=== PATIENT | female | born 1990 | race Caucasian/White ===

== ENCOUNTER → 2022-10-24 13:43 | Outpatient (BNVA) | payer OTHER, SELFPAY | PROVIDERS: Family Provider Family Medicine; PCP Family Medicine; Visit Provider Nurse Practitioner Family | DX: S89.92XA Unspecified injury of left lower leg, initial encounter (principal); X58.XXXA Exposure to other specified factors, initial encounter | CPT/HCPCS: 73562 ==

== ENCOUNTER 2022-12-24 22:53 | Emergency (ER) | payer OTHER, SELFPAY ==
[2022-12-24 22:58] VITALS: BP 140/84; PULSE 87; RESP 16; TEMP 36.8; O2SAT 98; BMI 29.6
[2022-12-24 23:06] VITALS: O2SAT 97
--- NOTE | 2022-12-24 23:16 | XRR_ITS ---
PROCEDURE INFORMATION: Exam: XR Chest Exam date and time: 12/24/2022 11:23 PM Age: 32 years old Clinical indication: Cough; Additional info: Cp TECHNIQUE: Imaging protocol: Radiologic exam of the chest. Views: 1 view. COMPARISON: CT abdomen pelvis w con* [id number] 10/04/2017 5:55 PM FINDINGS: Lungs: Unremarkable. No consolidation. Pleural spaces: Unremarkable. No pleural effusion. No pneumothorax. Heart/Mediastinum: Unremarkable. No cardiomegaly. Bones/joints: Moderate right convex scoliosis. XR/XR chest 1V portable [id number] IMPRESSION: No acute findings.
--- NOTE | 2022-12-24 23:47 | ED_ITS ---
HPI - COVID General: Chief Complaint: COVID symptoms Stated Complaint: throat tightness, body aches, chest tightness Time Seen by Provider: 12/24/22 23:16 Source: patient Mode of arrival: ambulatory Limitations: no limitations History of Present Illness: 32-year-old female states over the last couple days she has had a cough along with some congestion she is also had body aches and low-grade fever she states she had a sore throat along with she feels like some chest tightness. She had no vomiting no diarrhea states she had COVID in the past and feels like that or another viral infection. COVID 19 common symptoms: positive fever(s), chills, non-productive cough, body aches and throat pain; negative headache(s), nausea, vomiting or diarrhea COVID 19 other sytmptoms: negative chest pain COVID Results: SARS-CoV-2 Antigen (Rapid) Negative (Negative) 12/24/22 23:43 Review of Systems Const: Reports: fever(s), chills and body aches Eyes: Denies: blurry vision or eye discomfort ENMT: Reports: throat pain Card: Denies: chest pain Resp: Reports: non-productive cough GI: Denies: abdominal pain, nausea, vomiting or diarrhea : Denies: dysuria Musc: Denies: neck pain or back pain Skin/Breast: Denies: rash Neuro: Denies: headache(s) Psych: Denies: depression Dominic/Lymph: Denies: easy bruising All/Imm: Denies: urticaria PFSH ED PFSH: Medical History (Updated 12/25/22 @ 00:56 by Fazal Isidro MD) No pertinent past medical history Social History (Updated 12/24/22 @ 23:48 by Fazal Isidro MD) Substance/Drug Use: never Physical Exam Const: COMMON NORMALS: no acute distress, patient oriented x3 and healthy appearing HENMT: COMMON NORMALS: normocephalic and atraumatic HEAD & SCALP: normocephalic and atraumatic MOUTH: Normal oral and palatal mucosa present THROAT: posterior oropharynx normal Eye: COMMON NORMALS: Equal, round and reactive pupils present and EOMs intact bilaterally PUPIL: Yes Equal, round and reactive pupils present Neck/C-Spine: COMMON NORMALS: full ROM and supple Chest: COMMONS NORMALS: normal inspection of the chest and normal palpation of entire chest wall Resp: COMMON NORMALS: normal respiratory effort, No retractions, No use of accessory muscles and clear to auscultation bilaterally AUSCULTATION: clear to auscultation bilaterally Cardio: COMMON NORMALS: regular rate, regular rhythm and No murmurs present (Cardio) RATE: regular rate RHYTHM: regular rhythm GI: COMMON NORMALS: Normal to inspection, nondistended, normoactive bowel sounds present, Soft to palpation, non-tender and no masses PALPATION: Yes Soft to palpation Extremity: COMMON NORMALS: normal to inspection and full ROM Neuro: COMMON NORMALS: patient oriented x3, moves all extremities and no focal motor deficits Psych: COMMON NORMALS: mental status grossly normal, Normal thought process present and cooperative THOUGHT PROCESS: Normal thought process present Skin: COMMON NORMALS: no rashes or lesions noted and no wounds GENERAL SKIN EXAM: no rashes or lesions noted Course Vital Signs: Vital signs: Vital Signs Temperature 98.3 F 12/24/22 22:58 Pulse Rate 87 12/24/22 22:58 Respiratory Rate 16 12/24/22 22:58 Blood Pressure 140/84 12/24/22 22:58 Pulse Oximetry 97 12/24/22 23:06 Oxygen Delivery Me thod 12/24/22 23:06 MDM - COVID Medical Decision Making Patient presents here with likely viral upper respiratory infection she is well- appearing here no distress x-ray shows no pneumonia patient given Decadron here she is stable for discharge she is to follow-up with PCP and return if worsening. Lab Data Radiology Impressions Chest X-Ray 12/24/22 23:16 IMPRESSION: No acute findings. Laboratory Results Influenza Type A Ag Negative (Negative) 12/24/22 23:43 Influenza Type B Ag Negative (Negative) 12/24/22 23:43 SARS-CoV-2 Ag (Rapid) Negative (Negative) 12/24/22 23:43 Group A Strep Rapid Negative (Negative) 12/24/22 23:55 SARS-CoV-2 Antigen (Rapid) Negative (Negative) 12/24/22 23:43 Discharge Plan Discharge Patient Disposition: Home Clinical Impression: Upper respiratory infection Prescriptions: No Action No Known Home Medications Discharge Orders: Discharge ED (Routine); Ordered 12/25/22 Ordered By: Fzaal Isidro Referrals: Agnieszka Wheeler MD [Primary Care Provider] - 1-3 days Discharge Diet: Advance as tolerated Discharge Activity: Resume usual activity Patient Instructions: Upper Respiratory Infection (ED) Coding Level of Care Code ED Technician Support Engineer for Breezy Ruiz
--- NOTE | 2022-12-24 23:50 | ECG_ITS ---
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
[2022-12-25 00:45] LABS: Influenza A by IFA Negative (Negative); Influenza B by IFA Negative (Negative); SARS Covid-2 Antigen Negative (Negative)
[2022-12-25 00:55] LABS: Rapid Strep A Test Negative (Negative)
[2022-12-25] MEDS: dexamethasone 10 mg/mL INJ IM (01:00)
== END 2022-12-25 01:06 | disposition home or self-care (01) ==
PROVIDERS: Emergency Provider Emergency Medicine; PCP Family Medicine
DX: J06.9 Acute upper respiratory infection, unspecified (principal); Z20.822 Contact with and (suspected) exposure to COVID-19
CPT/HCPCS: 71045; 87081; 87426; 87804; 87880; 93005; 96372; 99285; J1100

== ENCOUNTER 2023-02-17 08:12 | Outpatient (CLI) | payer OTHER, SELFPAY ==
--- NOTE | 2023-02-17 08:30 | MR_ITS ---
WS: [id number] MRI RIGHT SHOULDER HISTORY: STRAIN OF ROTATOR CUFF COMPARISON: 02/10/2023 TECHNIQUE: Multiplanar sequences of the shoulder joint are submitted. Moderate AC joint arthropathy. Joint space is narrowed with irregularity along the joint surfaces. 4 mm osteophyte encroaches upon the myotendinous supraspinatus muscle. No significant subacromial or parkinson bdeltoid bursa. 4 mm osteophyte with minimal subacromial impingement. Biceps tendon in normal positio n. No os acromion. No muscle atrophy or edema. No rotator cuff tear. There is very mild tendinopathy of the subscapulari s tendon. No labral tear. MR/MR shoulder RT wo con* [id number] IMPRESSION: 1. No rotator cuff tendon tear. 2. Mild tendinopathy distal subscapularis tendon. 3. Moderate AC joint arthritis. 4 mm clavicular osteophyte with mild encroachm ent upon the supraspinatus myotendinous insertion site. 4. Mild subacromial impingement.
== END 2023-02-17 08:13 | disposition home or self-care (01) ==
LOC: RAD 08:19
PROVIDERS: PCP Family Medicine; Visit Provider Nurse Practitioner
DX: M19.011 Primary osteoarthritis, right shoulder (principal); M25.811 Other specified joint disorders, right shoulder; M67.813 Other specified disorders of tendon, right shoulder; M25.711 Osteophyte, right shoulder
CPT/HCPCS: 73221

== ENCOUNTER → 2023-03-29 09:50 | Outpatient (BNVA) | payer OTHER, SELFPAY | PROVIDERS: PCP Family Medicine; Referring Provider Nurse Practitioner; Visit Provider Specialist | DX: M75.01 Adhesive capsulitis of right shoulder (principal); G89.29 Other chronic pain; M25.511 Pain in right shoulder | CPT/HCPCS: 73030 ==

== ENCOUNTER 2023-04-23 10:43 | Outpatient (CLI) | payer OTHER, SELFPAY ==
--- NOTE | 2023-04-23 15:00 | CTR_ITS ---
PROCEDURE INFORMATION: Exam: CT Right Upper Extremity Without Contrast, Shoulder Exam date and time: 04/23/2023 10:51 AM Age: 32 years old Clinical indication: Pain; Shoulder; Right; Additional info: Shoulder pain TECHNIQUE: Imaging protocol: Computed tomography of the right upper extremity without contrast. Exam focused on the shoulder. Radiation optimization: All CT scans at this facility use at least one of these dose optimization techniques: automated exposure control; mA and/or kV adjustment per patient size (includes targeted exams where dose is matched to clinical indication); or iterative reconstruction. REPORTING DATA: Count of CT and Cardiac NM exams in prior 12 months: This patient has received 0 known CTs and 0 known cardiac nuclear medicine studies in the 12 months prior to the current study. COMPARISON: Right shoulder x-ray series 03/29/2023, MR shoulder RT wo con* [id number] 02/17/2023 9:11 AM RADIATION DOSE METRICS: Total DLP (mGy-cm): 364.12 FINDINGS: Bones/joints: Mild degenerative osteophyte formation and cystic changes in the distal clavicle and acromion are noted. Normal alignment of the acromioclavicular joint. A small amount of gas in the acromioclavicular joint is noted which extends into cystic changes in the acromion. Minimal distal clavicular or erosive changes cannot be entirely excluded anteriorly, for example on series 6, image 58 and on series 3 between images 14 and 15. Normal glenohumeral joint alignment. No acute fracture.There is mild diffuse vertebral body spondylosis. Soft tissues: Normal. CT/CT shoulder RT wo con* [id number] IMPRESSION: 1. No acute findings. 2. Acromioclavicular joint primary osteoarthritic changes are present. There are possible minimal erosive changes involving the cortex of the distal clavicle which can be associated with the underlying degenerative changes, posttraumatic osteolysis or repetitive microtrauma. The less likely differential includes inflammatory arthropathy or osteomyelitis.
== END 2023-04-23 10:44 | disposition home or self-care (01) ==
PROVIDERS: PCP Family Medicine; Visit Provider Specialist
DX: M19.011 Primary osteoarthritis, right shoulder (principal); M25.811 Other specified joint disorders, right shoulder; M75.01 Adhesive capsulitis of right shoulder
CPT/HCPCS: 73200

== ENCOUNTER → 2023-05-05 09:01 | Outpatient (BNVA) | payer OTHER, SELFPAY | PROVIDERS: PCP Family Medicine; Visit Provider Physician Assistant | DX: M47.22 Other spondylosis with radiculopathy, cervical region; M19.011 Primary osteoarthritis, right shoulder; R20.2 Paresthesia of skin | CPT/HCPCS: 72050 ==

== ENCOUNTER 2023-06-03 15:49 | Outpatient (CLI) | payer OTHER, SELFPAY ==
--- NOTE | 2023-06-03 16:00 | MR_ITS ---
WS: [id number] MRI CERVICAL SPINE NONCONTRAST HISTORY: Cervical spine pain, pain into RIGHT shoulder. COMPARISON: None available. Technique: Multiplanar, multisequence noncontrast imaging of the cervical spine. Normal cervical alignment with no compression fracture or significant disc space narrowing. Signal within the cervical cord is normal. Visualized posterior fossa is unremarkable. Craniocervical junction, C1 and C2 relationship, odontoid process and soft tissues are normal. C2-C3: Very superficial RIGHT foraminal disc versus osteophyte. No stenosis. C3-C4: Minimal disc bulging. No stenosis prior C4-C5: Normal. C5-C6: Minimal disc bulging. Very minimal RIGHT foraminal narrowing predominantly due to an osteophyt e. No high-grade stenosis. C6-C7: Normal. C7-T1: Normal. Paraspinal soft tissue are normal. IMPRESSION: 1. No high-grade central or foraminal stenosis or large disc protrusions. 2. Minimal RIGHT foraminal narrowing at C5-6 predominantly due to an osteophyte. No significant steno sis. 3. Very shallow RIGHT foraminal disc protrusion versus osteophyte at C2-3. No stenosis.
== END 2023-06-03 15:50 | disposition home or self-care (01) ==
PROVIDERS: PCP Family Medicine; Visit Provider Physician Assistant
DX: M47.22 Other spondylosis with radiculopathy, cervical region (principal); M25.511 Pain in right shoulder; M25.78 Osteophyte, vertebrae
CPT/HCPCS: 72141

== ENCOUNTER → 2023-07-26 15:11 | Outpatient (BNVA) | payer MEDICAID, SELFPAY | PROVIDERS: PCP Family Medicine; Referring Provider Orthopaedic Surgery; Visit Provider Nurse Practitioner | DX: G56.01 Carpal tunnel syndrome, right upper limb (principal) | CPT/HCPCS: 73130 ==

== ENCOUNTER 2023-08-06 07:48 | Day surgery (SDC) | payer MEDICAID, SELFPAY ==
[2023-08-06] VITALS (7 sets, daily range): BP systolic 102–132; BP diastolic 61–80; PULSE 60–90; RESP 16; TEMP 36.1–36.6; O2SAT 95–100; BMI 32.0
[2023-08-06 08:42] LABS: OR HCG Qualitative Urine Negative (Negative)
[2023-08-06] MEDS: CELEcoxib 200 mg Capsule 400 MG PO (08:47)
[2023-08-06] MEDS: gabapentin 300 mg Capsule PO (08:47)
[2023-08-06] MEDS: acetaminophen 1,000 MG/100 ML PIGGYBACK 400 MG IV (08:48)
[2023-08-06] MEDS: sodium chloride 0.9% 1,000 ML 30 ML IV (08:51)
--- NOTE | 2023-08-06 10:29 | ANES.PREANE2 ---
Pre-Anesthetic Assessment Height/Weight: Height 1.57 m Weight 79.379 kg Temp Pulse Resp BP Pulse Ox O2 Del Method 97.4 F L 71 16 102/78 98 Room Air 08/06/23 08:06 08/06/23 08:06 08/06/23 08:06 08/06/23 08:06 08/06/23 08:06 08/06/23 08:06 Operation Date: 08/06/23 09:40 Proposed Procedures p Right wrist carpal tunnel release 31674,G56.01(Right) - Camelia Caban MD Last intake: Intake Last Liquid Date 08/05/23 Last Liquid Time 22:00 Last Solid Date 08/05/23 Last Solid Time 22:00 Social Tobacco 1 pack(s) per day Airway Submandibular: within normal limits Cervical ROM: within normal limits Mallampati: Class II Pulmonary None reported CV/HEM None reported GI None reported Metabolic None reported Musc/skel Right AC joint arthritis Anesthetic Plan ASA status: 2 Anesthesia: General Medications/Allergies Home Medications Medication Instructions Recorded Confirmed Last Taken Type No Known Home Medications 08/05/23 08/05/23 Unknown History Allergies Allergy/AdvReac Type Severity Reaction Status Date / Time Penicillins Allergy ALGY-Hives Verified 08/06/23 08:06 Current Medications Generic Name Dose Route Start Last Admin Trade Name Roge PRN Reason Stop Dose Admin Sodium Chloride 1,000 mls @ 30 mls/hr 08/06/23 08:00 08/06/23 08:51 Sodium Chloride 0.9% IV 08/07/23 07:59 30 mls/hr .Q24H PHILLIP Administration PFSH Anesthesia Medical History No pertinent past medical history Social History Substance/Drug Use: never Female Reproductive History Date of last menstrual period: 07/16/23 Data Anesthesia Cardiac Studies: No Data to Display
--- NOTE | 2023-08-06 11:59 | P.HPUD_ITS ---
Surgery/Procedure H&P Update DATE OF PROCEDURE: August 06, 2023 DATE H&P PERFORMED: 07/26/23 H&P UPDATE INFORMATION: I have reviewed H&P completed within last 30 days, I have examined patient prior to procedure, No changes to prior documentation and H&P is in [facility] EMR on date indicated PLANNED PROCEDURE: Operation Date: 08/06/23 09:40 Proposed Procedures p Right wrist carpal tunnel release 71248,G56.01(Right) - Camelia Caban MD Related Problem List Diagnoses (1) Right carpal tunnel syndrome:
[2023-08-06] MEDS: ceFAZolin 2,000 MG in sodium chloride 0.9% (plus) 50 ML 100 MG IV (12:04)
[2023-08-06] MEDS: BUPivacaine 0.5% INJ 30 mL INJECTION (12:58)
[2023-08-06] MEDS: fentaNYL 50 mcg/mL INJ 2mL IVP (13:20)
[2023-08-06] MEDS: HYDROcodone-acetaminophen 5-325 mg Tablet 1 TAB PO (13:47)
--- NOTE | 2023-08-06 14:52 | PM.OP ---
Operative Report Date of procedure: August 06, 2023 Pre-op diagnosis: Right carpal tunnel syndrome Post-op diagnosis: Right carpal tunnel syndrome Post-op findings: Aberrant position of the motor branch of the median nerve coming up through the transverse carpal ligament and generating off the volar surface of the median nerve. This was protected throughout the surgical procedure. Procedure done: Right carpal tunnel release Pathology: None Surgeon: Camelia Caban MD Digital Intern: None Anesthesia: General (Per LMA, ASA 2) Estimated blood loss (mL): 1 Tourniquet time (min): 31 (At 250 mmHg) IV fluids (mL): 900 Urine output (mL): 0 (No Gifford) Complications: None Findings: Severe compression of the median nerve with aberrant motor branch as described above. Condition: stable Disposition: PACU (Then return to same-day surgery for discharge to home) Brief History: This 32-year-old woman presented to my office with complaints of carpal tunnel syndrome. She had had preoperative EMG demonstrating moderately severe entrapment of the right median nerve at the wrist with a normal ulnar nerve. Patient noted the thumb index middle and ring fingers were going numb. After discussion in the office, the patient wished to proceed with carpal tunnel release. Risks and complications were discussed with her. Consents were signed and questions were answered. Procedure: The patient was brought to the operating theater. She was administered a general anesthetic per LMA, ASA 2. The tourniquet was elevated to 250 mmHg for a total tourniquet time of 31 minutes. The patient was also given Ancef 2 g preoperatively. The arm was then prepped and draped with DuraPrep in usual fashion with the arm draped free. A surgical pause was performed. At the time, the surgical pause, we confirmed the site and side of surgery. We also confirmed the patient's identity, appropriate and timely administration of preoperative antibiotics and preoperative surgical markings. An incision was then made along the thenar crease. The incision crossed the wrist joint in a curvilinear fashion. Dissection continued through skin and soft tissues using a scalpel. The palmaris longus was identified along with the transverse carpal ligament. Each of these was released carefully to avoid injury to the median nerve. We were able to dissect gently into the carpal canal which was noted to be quite tight with significant compression across the median nerve. The nerve was visualized and was an hourglass shape. Of note, the motor branch of the median nerve was aberrant exiting from the volar surface of the median nerve and penetrating the transverse carpal ligament. This was protected throughout the surgical procedure. The canal was subsequently palpated to assure there was no bony encroachment upon the canal. There was a quite thickened fibrous tissue within the canal, and this was opened longitudinally as well. The canal was then palpated distally and proximally to assure that my small finger was passed easily without impingement. Finding this to be so, attention was directed to closure. The wound was irrigated with ropivacaine plain. It was then closed with 3-0 nylon in an interrupted mattress fashion. Sterile dressing was then placed consisting of Dermabond, OpSite, fluffed fluffs, sterile soft roll, and an Alexander wrap. The tourniquet was released after 31 minutes. There were no complications. There were no specimens. The procedure was well tolerated. Plan is the patient will be discharged home. Related Problem List Diagnoses (1) Right carpal tunnel syndrome:
== END 2023-08-06 14:19 | disposition home or self-care (01) ==
PROVIDERS: Anesthesiology; PCP Family Medicine; Visit Provider Specialist
PROC: (CPT 64721; principal; 2023-08-06 09:30)
DX: G56.01 Carpal tunnel syndrome, right upper limb (principal)
CPT/HCPCS: 64721; 81025; 84703; J0131; J0690; J1100; J1885; J2405; J2704; J3010; J3490; J7030

== ENCOUNTER → 2023-10-13 15:23 | Outpatient (BNVA) | payer OTHER, MEDICAID, SELFPAY | PROVIDERS: PCP Family Medicine; Visit Provider Nurse Practitioner | DX: M19.011 Primary osteoarthritis, right shoulder (principal); M75.41 Impingement syndrome of right shoulder; M67.911 Unspecified disorder of synovium and tendon, right shoulder | CPT/HCPCS: 73030 ==

== ENCOUNTER 2023-10-22 06:49 | Day surgery (SDC) | payer OTHER, MEDICAID, SELFPAY ==
[2023-10-22] VITALS (10 sets, daily range): BP systolic 102–119; BP diastolic 60–82; PULSE 55–79; RESP 12–20; TEMP 36.1–36.2; O2SAT 96–99
[2023-10-22 07:06] LABS: OR HCG Qualitative Urine Negative (Negative)
[2023-10-22] MEDS: acetaminophen 1,000 MG/100 ML PIGGYBACK 400 MG IV (07:20)
[2023-10-22] MEDS: sodium chloride 0.9% 1,000 ML 30 ML IV (07:20)
[2023-10-22] MEDS: CELEcoxib 200 mg Capsule 400 MG PO (07:21)
[2023-10-22] MEDS: gabapentin 300 mg Capsule PO (07:21)
[2023-10-22] MEDS: scopolamine 1.5 Patch 1 PATCH TRANSDERMA (07:23)
[2023-10-22] MEDS: midazolam 1 mg/mL INJ 2 mL 2 MG IVP (07:29)
--- NOTE | 2023-10-22 07:46 | P.HPUD_ITS ---
Surgery/Procedure H&P Update DATE OF PROCEDURE: October 22, 2023 DATE H&P PERFORMED: 10/13/23 H&P UPDATE INFORMATION: I have reviewed H&P completed within last 30 days, I have examined patient prior to procedure, No changes to prior documentation and H&P is in [facility] EMR on date indicated PLANNED PROCEDURE: Operation Date: 10/22/23 08:15 Proposed Procedures p Right shoulder open acromioplasty, distal clavicle resection and possible rotator cuff repair 78461, 20810, 08609,M19.011,(Right) - Camelia Caban MD s Distal Clavicle Resection(Right) - Camelia Caban MD s possible rotator cuff repair(Right) - Camelia Caban MD Related Problem List Diagnoses (1) Impingement syndrome of right shoulder: (2) Tendinopathy of right rotator cuff: (3) Osteoarthritis of right acromioclavicular joint:
[2023-10-22] MEDS: ceFAZolin 2,000 MG in sodium chloride 0.9% (plus) 50 ML 100 MG IV (07:55)
[2023-10-22] MEDS: ceFAZolin 1,000 mg SDV 1000 MG IRRIGATION (08:37)
--- NOTE | 2023-10-22 08:52 | ANES.PREANE2 ---
Pre-Anesthetic Assessment Height/Weight: Height 1.57 m Weight 79.379 kg Temp Pulse Resp BP Pulse Ox O2 Del Method 97.1 F L 55 L 16 108/65 97 Room Air 10/22/23 06:54 10/22/23 06:54 10/22/23 06:54 10/22/23 06:54 10/22/23 06:54 10/22/23 07:07 Operation Date: 10/22/23 08:15 Proposed Procedures p Right shoulder open acromioplasty, distal clavicle resection and possible rotator cuff repair 02810, 44165, 76719,M19.011,(Right) - Camelia Caban MD s Distal Clavicle Resection(Right) - Camelia Caban MD s possible rotator cuff repair(Right) - Camelia Caban MD Last intake: Intake Last Liquid Date 10/21/23 Last Liquid Time 22:30 Last Solid Date 10/21/23 Last Solid Time 22:30 Social No alcohol and No tobacco Exam alert, oriented x 3, clear to auscultation bilaterally and regular rate & rhythm Airway Submandibular: within normal limits Cervical ROM: within normal limits History/ROS No significant history except as noted Anesthetic Plan ASA status: 1 Anesthesia: General and Regional (specify below) (Right Interscalene Nerve Block ) Medications/Allergies Home Medications Medication Instructions Recorded Confirmed Last Taken Type acetaminophen 325 mg tablet 500 mg PO QID 10/21/23 10/21/23 10/18/23 History (Tylenol) Allergies Allergy/AdvReac Type Severity Reaction Status Date / Time Penicillins Allergy ALGY-Hives Verified 10/22/23 07:02 Current Medications Generic Name Dose Route Start Last Admin Trade Name Freq PRN Reason Stop Dose Admin Sodium Chloride 1,000 mls @ 30 mls/hr 10/22/23 07:00 10/22/23 07:20 Sodium Chloride 0.9% IV 10/23/23 06:59 30 mls/hr .Q24H PHILLIP Administration Midazolam HCl 2 mg 10/22/23 06:54 10/22/23 07:29 Midazolam 1 Mg/Ml Inj 2 Ml IVP 2 mg Q5M PRN Administration Preop Anxiety PFSH Anesthesia Medical History (Updated 10/16/23 @ 21:26 by FERMIN Morris-LAVON) Tendinopathy of right rotator cuff Impingement syndrome of right shoulder No pertinent past medical history Surgical History S/P carpal tunnel release DOS: 08/06/2023 Surgery: Right wrist carpal tunnel release. Surgeon: Dr. Camelia Caban MD. Social History Substance/Drug Use: never Data Anesthesia Cardiac Studies: No Data to Display
--- NOTE | 2023-10-22 08:53 | ANES.PROC ---
Anesthesia Procedures Procedure/Date: 10/22/23 Nerve Block ^: Nerve Block 2: Main Anesthesia: general anesthesia Time Out Performed: Yes Nerve block location: interscalene Anesthesia monitors applied: pulse oximetry Nerve block position: supine Anesthetic Used: lidocaine 1% Amount of anesthesia used (mL): 1 Nerve Stimulator Used?: Yes Interscalene/Femoral BLK: 2 stimuplex 22 g needle used for position and inplane approach and no vascular puncture identified Injection: neg aspiration of heme Complications: none Additional Comments: Easy single pass with rapid right arm/hand twitch at 1.2 mA gone at 0.33 mA
[2023-10-22] MEDS: ondansetron 2 mg/ML SDV 2 mL 4 MG IVP (09:33)
--- NOTE | 2023-10-22 09:46 | P.OP_ITS ---
Operative Report Date of procedure: October 22, 2023 Pre-op diagnosis: Left shoulder impingement with degenerative osteoarthritis of the acromioclavicular joint Post-op diagnosis: Left shoulder impingement with degenerative osteoarthritis of the acromioclavicular joint Post-op findings: Impingement left shoulder with acromioclavicular joint degenerative osteoarthritis and expansion. Evidence of tendon irritation without valery rotator cuff tear. Procedure done: Open left shoulder acromioplasty and distal clavicle resection with bursectomy Pathology: None Surgeon: Camelia Caban MD Regional Vice President Surgical Sales: [facility] operating room technicians Anesthesia: General (Intubated, ASA 1 with preoperative interscalene block) Estimated blood loss (mL): 20 IV fluids (mL): 700 Urine output (mL): 0 (No Gifford) Complications: None Condition: stable Disposition: PACU (Then return to same-day surgery for discharge to home) Brief History: This 32-year-old female presents today for right shoulder open acromioplasty and distal clavicle resection secondary to significant pain which interferes with her activities of daily living. Previously, surgery have been discussed, but the patient was reluctant to proceed. She was seen in early October and wished to proceed with this operative plan. Questions were answered and consents were signed at that time. Preoperatively, the patient did have an MRI demonstrating no rotator cuff tear, but there was mild tendinopathy of the distal subscapularis tendon and moderate acromioclavicular joint osteoarthritis. There was also noted to be subacromial impingement. Prior to surgical procedure today, consents were reviewed. Procedure: The patient was brought to the operating theater and underwent general intubated anesthesia, ASA 1 with preoperative supplemental interscalene block. The patient was placed in a beachchair position and subsequently the left upper extremity was prepped and draped in the usual fashion utilizing DuraPrep. The arm was draped free. A surgical pause was performed prior to commencement of the surgical procedure. At the time of the surgical pause, we confirmed the site and side of surgery as well as administration of appropriate preoperative antibiotics Ancef 2 g. MRI was also reviewed at that time. Previously, the ines ent noted a penicillin allergy, but she had no reaction to the IV Ancef given prophylactically. Following the surgical pause, an incision was made at approximately the level of the acromioclavicular joint extending across the anterolateral corner of the acromion and distally as necessary. Care was taken to avoid injury to the axillary nerve by limiting the distal extent of the incision. Dissection continued through skin and soft tissues using a scalpel. Hemostasis was obtained using electrocautery. Soft tissues were elevated off the acromion as well as the acromioclavicular joint. The acromioclavicular joint was exposed. A saw was then used to resect the distal clavicle without difficulty. The undersurface of the clavicle was palpated and was slightly further debrided. A power rasp wa s used to further smooth the area. Superficial portion of the clavicle also had partial resection secondary to osteophytes. This was smoothed with a power rasp as well. When this was felt to be adequately resected, the wound was irrigated. An acromioplasty was then accomplished using a combination of a saw and a power rasp. With this, we were able to remove compression caused by the acromion. The rotator cuff was then evaluated to look for tears. There was significant bursitis, and a bursectomy was performed. There was no evidence, however, of rotator cuff tear. This was consistent with MRI findings. The rotator cuff was visually evaluated and palpated to assure there was no rotator cuff tear. It was placed through full range of motion. Attention was then directed to closure. The wound was irrigated and closure was accomplished with 0 Vicryl in the capsular tissues overlying the acromioclavicular joint area as well as over the acromion and down into the deltoid muscle. 2-0 Monocryl was used to close the subcutaneous tissues followed by 4-0 Monocryl subcuticular closure. This was followed by Dermabond, Steri-Strips, and OpSite. The patient was placed in a sling and was returned to the recovery room in satisfactory condition. The patient will be discharged to home to follow-up in the office as scheduled. There were no complications and no specimens. Related Problem List Diagnoses (1) Impingement syndrome of right shoulder: (2) Tendinopathy of right rotator cuff: (3) Osteoarthritis of right acromioclavicular joint:
[2023-10-22] MEDS: HYDROcodone-acetaminophen 5-325 mg Tablet 1 TAB PO (10:24)
[2023-10-22] MEDS: cetylpyridinium Lozenge 1 EACH MUCOUS MEM (10:24)
--- NOTE | 2023-10-22 10:43 | ANE.PACU2 ---
Inpatient post-anesthesia follow up: Vital signs: Temperature 97 F Pulse Rate 57 Respiratory Rate 16 Blood Pressure 104/73 Pulse Oximetry 99 Oxygen Delivery Me thod Room Air Oxygen Flow Rate 6 Fraction of Inspir ed Oxygen Hydration adequate: Yes Nausea and vomiting: Yes (well controlled) Pain level: 1 Mental status: Baseline
== END 2023-10-22 10:45 | disposition home or self-care (01) ==
PROVIDERS: PCP Family Medicine; Visit Provider Specialist
PROC: (CPT 23130; principal; 2023-10-22 08:05)
PROC: (CPT 23120; 2023-10-22 08:05)
DX: M19.011 Primary osteoarthritis, right shoulder (principal); M25.811 Other specified joint disorders, right shoulder; M75.41 Impingement syndrome of right shoulder
CPT/HCPCS: 23120; 23130; 81025; 84703; J0131; J0690; J1100; J2250; J2405; J2704; J2710; J2795; J3010; J3490; J7030

== ENCOUNTER 2023-12-22 11:11 | Outpatient (RCR) | payer OTHER, SELFPAY | END 2024-01-09 23:59 | disposition home or self-care (01) | LOC: SPT 11:11 | PROVIDERS: PCP Family Medicine; Visit Provider Nurse Practitioner | DX: R29.898 Other symptoms and signs involving the musculoskeletal system (principal); M25.311 Other instability, right shoulder | CPT/HCPCS: 97110; 97161 ==

== ENCOUNTER 2024-01-10 06:00 | Outpatient (RCR) | payer OTHER, SELFPAY | END 2024-02-08 23:59 | disposition home or self-care (01) | LOC: SPT 06:00 | PROVIDERS: PCP Family Medicine; Visit Provider Nurse Practitioner | DX: M25.311 Other instability, right shoulder (principal); R29.898 Other symptoms and signs involving the musculoskeletal system | CPT/HCPCS: 97110 ==